=== PATIENT | female | born 1955 | race Caucasian/White ===

== ENCOUNTER 2017-03-04 15:43 | Emergency (ER) | payer BC ==
[2017-03-04 15:50] VITALS: BP 140/92
--- NOTE | 2017-03-04 16:18 | EDM.PDOC ---
ED HPI GENERAL MEDICAL PROBLEM - General Chief Complaint: Head Injury Stated Complaint: FELL HIT HEAD, [id number] Time Seen by Provider: 03/04/17 16:05 Source of Information: Reports: Patient History Limitations: Reports: No Limitations - History of Present Illness INITIAL COMMENTS - FREE TEXT/NARRATIVE: This 61 yo female patient reports to the ED due to slurred speech over the past month, a frequent headache and difficulties processing information. The patient reports she fell about 1 month ago and has been experiencing symptoms since that time. The patient reports after the fall she had a scrape on her right knee , left thigh and hip. The patient also reports intermittent pain in her back. The patient reports she really noticed the slurred speech on Thursday. The patient reports she has not and does not take Tylenol or ibuprofen. The patient was given some homeopathic medications to take over the weekend to reduce swelling in her brain. The patient has not been seen by a clinical provider since the fall. The patient did go to the [facility] prior to coming to the ED , but was advised to come to the ED for evaluation and treatment. 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 Onset: Gradual Duration: Week(s): (4), Constant, Getting Worse Location: Reports: Head (confusion, altered speech, immotional instability), Back (intermittent lower back pain), Lower Extremity, Left (sore hip), Lower Extremity, Right (sore knee), Generalized Quality: Reports: Other Severity: Severe Improves with: Reports: None Worsens with: Reports: None Context: Reports: Other Associated Symptoms: Reports: No Other Symptoms Left Middle Frontal Head Pain Score (Numeric/FACES): 6 - Related Data Allergies Allergy/AdvReac Type Severity Reaction Status Date / Time Androgenic Anabolic Steroid AdvReac "wires me" Verified 03/04/17 15:56 Home Meds: Home Meds ALPRAZolam [ALPRAZolam] 0.5 mg PO ASDIRECTED PRN 03/04/17 [History] ED ROS GENERAL - Review of Systems Review Of Systems: ROS reveals no pertinent complaints other than HPI. ED EXAM, HEAD INJURY - Physical Exam Exam: See Below Exam Limited By: No Limitations General Appearance: Alert, WD/WN, Anxious, Moderate Distress Head: Atraumatic, Normocephalic Nexus Criteria: No: Posterior, Midline Cervical Tenderness, Evidence of Intoxication, Altered Level of Consciousness, Focal Neurological Deficit, Painful Distraction Injuries Eyes: Bilateral Eye: EOMI, Normal Inspection, PERRL Ears: Normal External Exam, Normal Canal, Hearing Grossly Normal, Normal TMs Nose: Normal Inspection, Normal Mucousa, No Blood Throat/Mouth: Normal Inspection, Normal Lips, Normal Teeth, Normal Gums, Normal Oropharynx, Normal Voice, No Airway Compromise Neck: Non-Tender, Full Range of Motion, Normal Alignment, Normal Inspection Respiratory: No Respiratory Distress, Lungs Clear, Normal Breath Sounds, No Accessory Muscle Use, Chest Non-Tender Cardiovascular: Normal Peripheral Pulses, Regular Rate, Rhythm, No Edema, No Gallop, No JVD, No Murmur, No Rub GI/Abdominal Exam (Abbreviated): Normal Bowel Sounds, Soft, Non-Tender, No Organomegaly, No Distention, No Abnormal Bruit, No Mass (Female) Exam: Deferred Rectal (Female) Exam: Deferred Back Exam: Full Range of Motion, Normal Inspection, NT Extremities: No Evidence of Injury, Normal Range of Motion, Non-Tender, No Pedal Edema Neurologic: outsoles channel opener II-XII nml As Tested, No Motor/Sensory Deficits, Alert, Normal Mood/Affect, Oriented x 3 Skin: Normal Color, Warm/Dry - Jenn Coma Score Best Eye Response (Jenn): (4) Open Spontaneously Best Verbal Response ([place]): (5) Oriented Best Motor Response ([place]): (6) Obeys Commands [place] Total: 15 Course - Vital Signs Last Recorded V/S: Last Vital Signs Temp 36.5 C 03/04/17 15:49 Pulse 95 03/04/17 15:49 Resp 20 03/04/17 15:49 BP 140/92 H 03/04/17 15:49 Pulse Ox 97 03/04/17 15:49 - Orders/Labs/Meds Labs: Laboratory Tests 03/04/17 Range/Units 16:15 WBC 7.9 (5.0-10.0) 10^3/uL RBC 4.34 (4.2-5.4) 10^6/uL Hgb 13.3 (12.0-16.0) g/dL Hct 40.3 (37.0-47.0) % MCV 92.9 (80-100) fL MCH 30.6 (27.0-34.0) pg MCHC 33.0 (33.0-35.0) g/dL Plt Count 225 (150-450) 10^3/uL Neut % (Auto) 52.4 (42.2-75.2) % Lymph % (Auto) 37.7 (20.5-50.1) % [place] % (Auto) 7.4 (2-8) % Eos % (Auto) 2.4 (1.0-3.0) % Baso % (Auto) 0.1 (0.0-1.0) % Departure - Departure Time of Disposition: 17:10 Disposition: Home, Self-Care 01 Condition: Fair Clinical Impression: Concussion injury of brain, Post concussion syndrome, Post-concussion headache - Discharge Information Instructions: Concussion, Adult, [id number], Post-Concussion Syndrome, Easy- to-Read Forms: ED Department Discharge Care Plan Goals: The patient was advised of the examination, lab and CT results during the visit. The patient was encouraged to rest and relax until her symptoms subside. If the patient continues to have symptoms over the next week, the patient was encouraged to follow-up with neurology (Dr. Powell would be a great choice from [facility] in [place]). If the patient has any additional symptoms or concerns, the patient should follow-up with her primary care facility or return to the emergency department.
--- NOTE | 2017-03-04 16:34 | CT ---
Clinical history: 61-year-old female with altered mentation reported to have "no evidence of acute i ntracranial abnormality" on most recent, previous CT scan of the head 17 June 2013 obtained for "confusion". ("Negative" CT exam of the head 19 August 2010 for "dizziness") Scan technique: Volume acquisition of data emergency unenhanced CT scan of the head obtained with th e patient lying supine on the Siemens multi slice CT scanner [facility]. All data archived in the PACS system for storage, reformatting and study. Interpretation: 1. Uniformly thick bony calvarium without sign of pathologic skeletal lesion, skull fracture, underl meseret brain contusion or epidural/subdural hematoma. 2. Symmetric pneumatization of the mastoid and paranasal sinuses. Midline pineal and symmetric choro id plexus calcifications. 3. Generalized age related, symmetric cerebral cortical atrophy. Underlying mirror-image normal vent ricular system. 4. No supratentorial or posterior fossa mass lesion. No focal areas of ischemic infarct. No sign of acute intracerebral/intraventricular/subarachnoid bleed. 5. Cerebellum and brainstem unremarkable. *No appreciable change CT appearance of the skull or brain when compared directly to images 2012. CONCLUSION: Negative exam.
== END 2017-03-04 17:26 | disposition home or self-care (01) ==
LOC: DL.ED 15:43
DX: S06.0X9A Concussion with loss of consciousness of unspecified duration, initial encounter (principal); Z88.8 Allergy status to other drugs, medicaments and biological substances; W19.XXXA Unspecified fall, initial encounter
CPT/HCPCS: 36415; 70450; 85025; 99285

== ENCOUNTER 2022-08-04 05:31 | Day surgery (SDC) | payer BC, MEDICARE ==
[2022-08-04] MEDS ORDERED: Midazolam 1 MG/ML 2 ML SDV IV ONE ×7 (05:32→08:42)
[2022-08-04] MEDS ORDERED: fentaNYL 100 MCG/2 ML SDV IV ONE ×5 (05:32→08:33)
[2022-08-04] MEDS ORDERED: Dextrose 5%-0.45% NaCl 1,000 ML IV SCH (06:00)
[2022-08-04] MEDS ORDERED: Sodium Chloride 0.9% 10 ML Syringe FLUSH PRN (06:00)
[2022-08-04] MEDS ORDERED: Midazolam 1 MG/ML 2 ML SDV ONE ×2 (06:23→08:59)
[2022-08-04] MEDS ORDERED: fentaNYL 100 MCG/2 ML SDV ONE (06:24)
[2022-08-04] MEDS ORDERED: Sodium Chloride 0.9% 10 ML Syringe FLUSH SCH (09:00)
[2022-08-04 09:48] VITALS: BP 113/74; PULSE 82
== END 2022-08-04 10:05 | disposition home or self-care (01) ==
LOC: DL.ENDO 05:31
PROVIDERS: ATTEND Internal Medicine Gastroenterology
DX: K57.31 Diverticulosis of large intestine without perforation or abscess with bleeding (principal); I10 Essential (primary) hypertension; Z88.6 Allergy status to analgesic agent; Z86.010 Personal history of colon polyps; Z91.012 Allergy to eggs; Z88.8 Allergy status to other drugs, medicaments and biological substances; Z91.011 Allergy to milk products
CPT/HCPCS: 36410; 45378; J2250; J3010; J7042